=== PATIENT | male | born 1990 | race Caucasian/White ===

== ENCOUNTER 2016-07-28 07:46 | Outpatient (CLI) | payer MEDICAID | END 2016-07-28 07:47 | disposition home or self-care (01) | DX: Z79.899 Other long term (current) drug therapy (principal) ==

== ENCOUNTER 2016-09-18 16:39 | Outpatient (CLI) | payer MEDICAID | END 2016-09-18 16:40 | disposition home or self-care (01) | DX: Z79.899 Other long term (current) drug therapy (principal) ==